=== PATIENT | male | born 1960 | race American Indian/Alaskan Native ===

== ENCOUNTER 2017-10-24 17:06 | Inpatient (IN) | payer OTHER ==
--- NOTE | 2017-10-24 17:39 | ED PDOC ---
Arrival/HPI - General Chief Complaint: Shortness Of Breath Time Seen by Provider: 10/24/17 17:22 Historian: Patient EM Caveat: Respiratory Distress - History of Present Illness Narrative History of Present Illness (Text): 10/24/17 17:36 Pt is a 56 year old AA male who presents with shortness of breath x 4 hrs ago while at work. 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 Also reports using heroin 5 hours ago, prior to the said SOB. Denies cp, n/v/d, back pain, fever or chills, or any other symptoms. Pt does not have a PMD. Denies sick contacts. 10/24/17 17:48 Time/Duration: 4-6 hours Symptom Onset: Sudden Symptom Course: Unchanged Quality: Pressure, Tightness Severity Level: Mild Activities at Onset: Light Context: Work Past Medical History - Provider Review Nursing Documentation Reviewed: Yes - Travel History Have you recently traveled outside [place] w/in the past 3 mons?: No - Past History Past History: No Previous - Infectious Disease Hx of Infectious Diseases: None - Tetanus Immunization Tetanus Immunization: Unknown - Cardiac Hx Cardiac Disorders: No - Pulmonary Hx Respiratory Disorders: Yes Hx Asthma: Yes - Neurological Hx Neurological Disorder: No - HEENT Hx HEENT Disorder: No - Renal Hx Renal Disorder: No - Endocrine/Metabolic Hx Endocrine Disorders: No - Hematological/Oncological Hx Blood Disorders: No - Integumentary Hx Dermatological Disorder: No - Musculoskeletal/Rheumatological Hx Musculoskeletal Disorders: No - Gastrointestinal Hx Gastrointestinal Disorders: No - Genitourinary/Gynecological Hx Genitourinary Disorders: No - Psychiatric Hx Psychophysiologic Disorder: No Hx Substance Use: Yes - Surgical History Other/Comment: hx of R finger surgery, 2nd digit - Anesthesia Hx Anesthesia: Yes Hx Anesthesia Reactions: No Family/Social History - Physician Review Nursing Documentation Reviewed: Yes Family/Social History: Unknown Family HX Smoking Status: Heavy Smoker > 10 Cigarettes Daily Hx Alcohol Use: No Hx Substance Use: Yes Substance used: heroin Hx Substance Use Treatment: Yes (Heroin) Allergies/Home Meds Allergies/Adverse Reactions: Allergies No Known Allergies Allergy (Verified 10/24/17 17:42) Review of Systems - Physician Review All systems were reviewed & negative as marked: Yes - Review of Systems Systems not reviewed;Unavailable: Respiratory Distress Constitutional: Normal Eyes: Normal ENT: Normal Respiratory: SOB, Wheezing Cardiovascular: Normal Gastrointestinal: Normal Genitourinary Male: Normal Musculoskeletal: Normal Skin: Normal Neurological: Normal Endocrine: Normal Hemo/Lymphatic: Normal Psychiatric: Normal Physical Exam Vital Signs Reviewed: Yes Vital Signs Temp Pulse Resp BP Pulse Ox 10/25/17 00:00 68 18 116/67 99 10/24/17 22:00 72 16 115/64 100 10/24/17 20:30 78 18 112/66 100 10/24/17 19:20 10 L 10/24/17 18:46 60 18 120/68 100 10/24/17 17:15 98.7 F 87 19 110/58 L 100 Temperature: Afebrile Blood Pressure: Normal Pulse: Regular Respiratory Rate: Normal Appearance: Positive for: Non-Toxic, Uncomfortable Pain Distress: Mild Mental Status: Positive for: Alert and Oriented X 3 - Systems Exam Head: Present: Atraumatic, Normocephalic Pupils: Present: Pinpoint Extroacular Muscles: Present: EOMI Conjunctiva: Present: Normal Mouth: Present: Moist Mucous Membranes Neck: Present: Normal Range of Motion Respiratory/Chest: Present: Respiratory Distress, Wheezes. No: Accessory Muscle Use Cardiovascular: Present: Regular Rate and Rhythm, Normal S1, S2. No: Murmurs Abdomen: Present: Normal Bowel Sounds. No: Tenderness, Distention, Peritoneal Signs Back: Present: Normal Inspection Upper Extremity: Present: Normal Inspection. No: Cyanosis, Edema Lower Extremity: Present: Normal Inspection. No: Edema Neurological: Present: GCS=15, CN II-XII Intact, Speech Normal Skin: Present: Warm, Dry, Normal Color. No: Rashes Psychiatric: Present: Alert, Oriented x 3, Normal Insight, Normal Concentration Medical Decision Making ED Course and Treatment: 10/24/17 17:39 Pt is a 56 year old AA male who presents with shortness of breath x 4 hrs ago while at work. On exam, bilateral lung field wheezing, no signs of respiratory distress, Plan ecg, cxr, duneb x3 assess and dispo Progress Note Pt received Duoneb q15 mins ECG NSR CXR reveals evidence of COPD Pt reluctant to give Urine sample however did after drinking water Prednisone 40mg and Azithromycin 500 mg given STAT Pt was able to walk to the restroom to give urine sample, when he returned to his bed, he was satting at 93% and refused to stand up and walk; tripoding at bedside; O2 given via NC at 2L and IV fluids; resident called to admit to Telemetry as per Dr. Martinez. Anticipated Dispo home: Rx of 5 days of prednisone 40 mg daily and instructed pt on regular use of a respirator while working, smoking cessation and avoidance of heroin use; informed pt of risks associated with heroin use 10/24/17 20:13 10/24/17 21:19 - Lab Interpretations Lab Results: 10/24/17 18:10 10/24/17 18:10 Lab Results 10/24/17 20:35: Urine Color Light yellow, Urine Appearance Clear, Urine pH 6.0, Ur Specific [place] 1.020, Urine Protein Negative, Urine Glucose (UA) Negative, Urine Ketones Negative, Urine Blood Trace-intact H, Urine Nitrate Negative, Urine Bilirubin Negative, Urine Urobilinogen 0.2, Ur Leukocyte Esterase Negative , Urine RBC 0 - 2, Urine WBC 0 - 2, Ur Epithelial Cells None, Urine Bacteria Small, Urine Other Usperm 10/24/17 20:35: Urine Opiates Screen Positive H, Urine Methadone Screen Negative , Ur Barbiturates Screen Negative, Ur Phencyclidine Scrn Negative, Ur Amphetamines Screen Negative, U Benzodiazepines Scrn Negative, U Oth Cocaine Metabols Negative, U Cannabinoids Screen Negative 10/24/17 18:10: Sodium 143, Potassium 4.7, Chloride 104, Carbon Dioxide 30, Anion Gap 14, BUN 14, Creatinine 0.7 L, Est GFR ( Amer) > 60, Est GFR ( Non-Af Amer) > 60, Random Glucose 109, Calcium 9.7, Total Bilirubin 0.2, AST 27 , ALT 37, Alkaline Phosphatase 67, Total Protein 7.5, Albumin 4.4, Globulin 3.2 , Albumin/Globulin Ratio 1.4 10/24/17 18:10: WBC 4.7, RBC 4.86, Hgb 13.6 L, Hct 40.8 L, MCV 84.0, MCH 28.0, MCHC 33.3, RDW 13.1, Plt Count 216, MPV 9.9 I have reviewed the lab results: Yes (Pos for Opiates) - RAD Interpretation Narrative RAD Interpretations (Text): 10/25/17 11:54 No infiltrates appreciated; COPD indications but needs clinical correlates Radiology Orders: 10/24/17 17:43 CXR [CHEST TWO VIEWS (PA/LAT)] [RAD] Stat Instrument Sterilizer: ED Physician - EKG Interpretation Interpreted by ED Physician: Yes (NSR with arrhythmia) - Medication Orders Current Medication Orders: Albuterol/Ipratropium (Duoneb 3 Mg/0.5 Mg (3 Ml) Ud) 3 ml IH [id number] TOD Last Admin: 10/25/17 07:36 Dose: 3 ml Albuterol/Ipratropium (Duoneb 3 Mg/0.5 Mg (3 Ml) Ud) 3 ml IH Q2H PRN PRN Reason: Shortness of Breath Clotrimazole (Lotrimin 1%) 0 gm TOP BID TOD Azithromycin (Zithromax 500mg In Ns) 500 mg in 250 mls @ 167 mls/hr IVPB DAILY TOD PRN Reason: Protocol Last Admin: 10/25/17 10:17 Dose: 167 mls/hr eMAR Start Stop Document 10/25/17 10:17 V (Rec: 10/25/17 10:17 [id number]) Intravenous Solution Start Date 10/25/17 Start Time 10:30 End Date 10/25/17 End time 11:45 Total Infusion Time 75 Lactic Acid (Lac-Hydrin 12% Lotion (225 G)) 0 gm EXT BID TOD Lorazepam (Ativan) 1 mg IVP Q1H PRN; Protocol PRN Reason: Anxiety Methadone HCl (Methadone) 10 mg PO BID [facility] Nicotine (Nicoderm Cq) 1 patch TD DAILY [facility] Last Admin: 10/25/17 10:16 Dose: 1 patch MAR Transdermal Patch Site Document 10/25/17 10:16 V (Rec: 10/25/17 10:17 [id number]) Transdermal Patch Site Transdermal Patch Site Right Outer Upper Arm Prednisone (Prednisone Tab) 20 mg PO BID [facility] Last Admin: 10/25/17 10:16 Dose: 20 mg Discontinued Medications Albuterol Sulfate (Albuterol 0.083% Inhal Joanna (2.5 Mg/3 Ml) Ud) 2.5 mg INH STAT STA Stop: 10/24/17 21:57 Last Admin: 10/24/17 22:09 Dose: 2.5 mg Albuterol/Ipratropium (Duoneb 3 Mg/0.5 Mg (3 Ml) Ud) 3 ml IH Q15M TOD Stop: 10/24/17 18:16 Last Admin: 10/24/17 18:30 Dose: 3 ml Albuterol/Ipratropium (Duoneb 3 Mg/0.5 Mg (3 Ml) Ud) 3 ml IH Q2H PRN PRN Reason: Shortness of Breath Stop: 10/25/17 02:46 Albuterol/Ipratropium (Duoneb 3 Mg/0.5 Mg (3 Ml) Ud) 3 ml IH Q15M TOD Stop: 10/25/17 07:39 Last Admin: 10/25/17 07:36 Dose: 3 ml Azithromycin (Zithromax) 500 mg PO STAT STA PRN Reason: Protocol Stop: 10/24/17 20:13 Last Admin: 10/24/17 20:31 Dose: 500 mg Sodium Chloride (Sodium Chloride 0.9%) 1,000 mls @ 999 mls/hr IV .Q1H1M STA Stop: 10/24/17 22:19 Last Admin: 10/24/17 21:54 Dose: 999 mls/hr eMAR Start Stop Document 10/24/17 21:54 JOL (Rec: 10/24/17 21:54 JOL [facility]-[id number]) Intravenous Solution Start Date 10/24/17 Start Time 21:54 End Date 10/24/17 End time 22:54 Total Infusion Time 60 Lorazepam (Ativan) 0.5 mg IVP ONCE ONE PRN Reason: Protocol Stop: 10/25/17 00:36 Last Admin: 10/25/17 00:50 Dose: 0.5 mg IVP Administration Document 10/25/17 00:50 MS (Rec: 10/25/17 00:50 MS [id number]) Charges for Administration # of IVP Administrations 1 Behavioural Document 10/25/17 00:50 MS (Rec: 10/25/17 00:50 MS [id number]) Maintenance Maintenance Dose No Nonmedicinal Nonmedicinal Interventions Redirect Therapeutic Communication Give food/fluids See nurse's notes Behavior Behavior for Medication: Anxiety Behavior Comment heroin abuse/withdrawal Re-Assess: Reassess Psych Meds Document 10/25/17 01:20 MS (Rec: 10/25/17 01:48 MS [id number]) Reassess Psych Med Effective Lorazepam (Ativan) 0.5 mg IVP STAT STA PRN Reason: Protocol Stop: 10/25/17 07:17 Last Admin: 10/25/17 07:36 Dose: 0.5 mg IVP Administration Document 10/25/17 07:36 MS (Rec: 10/25/17 07:37 MS [id number]) Charges for Administration # of IVP Administrations 1 Behavioural Document 10/25/17 07:36 MS (Rec: 10/25/17 07:37 MS [id number]) Maintenance Maintenance Dose No Nonmedicinal Nonmedicinal Interventions Redirect Therapeutic Communication Activity Give food/fluids Behavior Behavior for Medication: Anxiety Behavior Comment withdrawal Prednisone (Prednisone Tab) 40 mg PO STAT STA Stop: 10/24/17 20:12 Last Admin: 10/24/17 20:31 Dose: 40 mg Disposition/Present on Arrival - Present on Arrival Any Indicators Present on Arrival: Yes History of DVT/PE: No History of Uncontrolled Diabetes: No Urinary Catheter: No History of Decub. Ulcer: No History Surgical Site Infection Following: None - Disposition Have Diagnosis and Disposition been Completed?: Yes Diagnosis: COPD exacerbation Disposition: HOSPITALIZED Disposition Time: 22:21 Patient Plan: Admission Patient Problems: Current Active Problems Problem Status Onset COPD exacerbation Acute Condition: STABLE
[2017-10-24] MEDS: Albuterol-Ipratrop 3 mg / 0.5 (3 ml) UD IH SCH ×3 (18:00→18:30)
[2017-10-24 18:53] LABS: HEMOGLOBIN 13.6 g/dL (14.0-18.0); MEAN CORPUSCULAR HGB CONC 33.3 g/dl (31.0-37.0); MEAN PLATELET VOLUME 9.9 fl (7.0-11.0); RBC 4.86 10^6/uL (3.5-6.1); RED CELL DISTRIBUTION WIDTH 13.1 % (11.5-14.5); WHITE BLOOD COUNT 4.7 10^3/ul (4.5-11.0)
[2017-10-24 18:59] LABS: ALB/GLOB RATIO 1.4 (1.1-1.8); ALBUMIN 4.4 g/dL (3.0-4.8); ALT/SGPT 37 U/L (7-56); AST/SGOT 27 U/L (17-59); BLOOD UREA NITROGEN 14 mg/dL (7-21); CALCIUM 9.7 mg/dL (8.4-10.5); GFR AFRICAN-AMERICAN > 60; GFR NON-AFRICAN AMERICAN > 60
[2017-10-24 20:55] LABS: URINE BILIRUBIN NEGATIVE (NEGATIVE); URINE BLOOD TRACE-INTACT (NEGATIVE); URINE GLUCOSE (UA) NEGATIVE (NEGATIVE); URINE LEUKOCYTE ESTERASE NEGATIVE Leu/uL (NEGATIVE); URINE NITRATE NEGATIVE (NEGATIVE); URINE PROTEIN NEGATIVE mg/dL (<30 mg/dL); URINE UROBILINOGEN 0.2 E.U./dL (<1 E.U./dL)
[2017-10-24 20:56] LABS: URINE APPEARANCE CLEAR (CLEAR); URINE COLOR LIGHT YELLOW (YELLOW)
[2017-10-24 21:07] LABS: BARBITURATES, UR NEGATIVE (NEGATIVE); BENZODIAZEPINES, UR NEGATIVE (NEGATIVE); OPIATES, UR POSITIVE (NEGATIVE); PHENCYCLIDINE, UR NEGATIVE (NEGATIVE)
[2017-10-24 21:14] LABS: URINE RBC 0 - 2 /hpf (0-2); URINE WBC 0 - 2 /hpf (0-6)
[2017-10-24 21:15] LABS: URINE BACTERIA SMALL (NEG)
[2017-10-24] MEDS ORDERED: Sodium Chloride 0.9% 1,000 ML IV STA (21:19)
[2017-10-24] MEDS ORDERED: Albuterol 0.083% Inhal Sol (2.5 mg/3 mL) UD INH STA (21:56)
--- NOTE | 2017-10-24 22:34 | CP.PCM.HP ---
<JaharishDaly - Last Filed: 10/24/17 22:42> History of Present Illness - History of Present Illness History of Present Illness: Patient is a 56 year old male with a PMHx of Asthma who presents complaining of worsening SOB that started about 10 AM this morning. Patient states he was working at a [employer] site when his symptoms began. He tried his albuterol inhaler to relieve his symptoms with minimal relief. Patient does admit to sniffing heroin today. He also admits to sick contacts with the flu. Patient also complains of intermittent dyspnea on exertion and needing to use his albuterol inhaler on a daily basis. Patient denies any fevers, chills, headache , chest pain, palpitations, n/v/d, constipation, abdominal pain, or any urinary symptoms. He does admit to some mild chest tightness. ROS: As stated above PMHx: Asthma PSHx: Right 2nd finger surgery Allergies: NKDA SocialHx: Current Smoker: 2-3 Black & Milds Daily. Smoker for abou 28 years. Admits to mild alcohol use. Admits to Heroin Use (Sniff) Hos: Denies FamHx: Denies Meds: Albuterol IH Present on Admission - Present on Admission Any Indicators Present on Admission: No Review of Systems - Review of Systems Review of Systems: As per HPI Past Patient History - Infectious Disease Hx of Infectious Diseases: None - Tetanus Immunizations Tetanus Immunization: Unknown - Past Social History Smoking Status: Heavy Smoker > 10 Cigarettes Daily - CARDIAC Hx Cardiac Disorders: No - PULMONARY Hx Respiratory Disorders: Yes Hx Asthma: Yes - NEUROLOGICAL Hx Neurological Disorder: No - HEENT Hx HEENT Problems: No - RENAL Hx Chronic Kidney Disease: No - ENDOCRINE/METABOLIC Hx Endocrine Disorders: No - HEMATOLOGICAL/ONCOLOGICAL Hx Blood Disorders: No - INTEGUMENTARY Hx Dermatological Problems: No - MUSCULOSKELETAL/RHEUMATOLOGICAL Hx Musculoskeletal Disorders: No - GASTROINTESTINAL Hx Gastrointestinal Disorders: No - GENITOURINARY/GYNECOLOGICAL Hx Genitourinary Disorders: No - PSYCHIATRIC Hx Psychophysiologic Disorder: No Hx Substance Use: Yes - SURGICAL HISTORY Other/Comment: hx of R finger surgery, 2nd digit - ANESTHESIA Hx Anesthesia: Yes Hx Anesthesia Reactions: No Meds Home Medications: Home Medication List Medication Instructions Recorded Confirmed Type Albuterol HFA [Ventolin HFA 90 2 puff IH [id number] 30 Days #1 puff 10/24/17 Rx mcg/actuation (8 g)] Azithromycin 250 mg PO DAILY 4 Days #4 tablet 10/24/17 Rx predniSONE [Prednisone] 40 mg PO DAILY 5 Days #10 tab 10/24/17 Rx Allergies/Adverse Reactions: Allergies Allergy/AdvReac Type Severity Reaction Status Date / Time No Known Allergies Allergy Verified 10/24/17 17:42 Physical Exam - Constitutional Appears: Non-toxic, No Acute Distress, Cachectic - Head Exam Head Exam: ATRAUMATIC, NORMAL INSPECTION, NORMOCEPHALIC - Eye Exam Eye Exam: EOMI, PERRL Pupil Exam: Miosis - ENT Exam ENT Exam: Normal Oropharynx - Neck Exam Neck exam: Negative for: Lymphadenopathy, Tenderness, Thyromegaly - Respiratory Exam Respiratory Exam: Decreased Breath Sounds, Wheezes (mild, Right Upper Lung) - Cardiovascular Exam Cardiovascular Exam: +S1, +S2. absent: JVD - GI/Abdominal Exam GI & Abdominal Exam: Normal Bowel Sounds, Soft. absent: Tenderness - Extremities Exam Extremities exam: Positive for: normal capillary refill. Negative for: pedal edema Additional comments: Lower ext. Dry and Scaly B/L. Finger Clubbing B/L - Neurological Exam Neurological exam: Alert, Oriented x3 - Psychiatric Exam Psychiatric exam: Normal Affect, Normal Mood - Skin Skin Exam: Dry, Intact, Warm Results - Vital Signs Recent Vital Signs: Last Vital Signs Temp 98.7 F 10/24/17 17:15 Pulse 78 10/24/17 20:30 Resp 18 10/24/17 20:30 BP 112/66 10/24/17 20:30 Pulse Ox 100 10/24/17 20:30 - Labs Result Diagrams: 10/24/17 18:10 10/24/17 18:10 Labs: Laboratory Results - last 24 hr 10/24/17 10/24/17 10/24/17 18:10 18:10 20:35 WBC 4.7 RBC 4.86 Hgb 13.6 L Hct 40.8 L MCV 84.0 MCH 28.0 MCHC 33.3 RDW 13.1 Plt Count 216 MPV 9.9 Sodium 143 Potassium 4.7 Chloride 104 Carbon Dioxide 30 Anion Gap 14 BUN 14 Creatinine 0.7 L Est GFR ( Amer) > 60 Est GFR (Non-Af Amer) > 60 Random Glucose 109 Calcium 9.7 Total Bilirubin 0.2 AST 27 ALT 37 Alkaline Phosphatase 67 Total Protein 7.5 Albumin 4.4 Globulin 3.2 Albumin/Globulin Ratio 1.4 Urine Color Urine Appearance Urine pH Ur Specific [place] Urine Protein Urine Glucose (UA) Urine Ketones Urine Blood Urine Nitrate Urine Bilirubin Urine Urobilinogen Ur Leukocyte Esterase Urine RBC Urine WBC Ur Epithelial Cells Urine Bacteria Urine Other Urine Opiates Screen Positive H Urine Methadone Screen Negative Ur Barbiturates Screen Negative Ur Phencyclidine Scrn Negative Ur Amphetamines Screen Negative U Benzodiazepines Scrn Negative U Oth Cocaine Metabols Negative U Cannabinoids Screen Negative 10/24/17 20:35 WBC RBC Hgb Hct MCV MCH MCHC RDW Plt Count MPV Sodium Potassium Chloride Carbon Dioxide Anion Gap BUN Creatinine Est GFR ( Amer) Est GFR (Non-Af Amer) Random Glucose Calcium Total Bilirubin AST ALT Alkaline Phosphatase Total Protein Albumin Globulin Albumin/Globulin Ratio Urine Color Light yellow Urine Appearance Clear Urine pH 6.0 Ur Specific [place] 1.020 Urine Protein Negative Urine Glucose (UA) Negative Urine Ketones Negative Urine Blood Trace-intact H Urine Nitrate Negative Urine Bilirubin Negative Urine Urobilinogen 0.2 Ur Leukocyte Esterase Negative Urine RBC 0 - 2 Urine WBC 0 - 2 Ur Epithelial Cells None Urine Bacteria Small Urine Other Usperm Urine Opiates Screen Urine Methadone Screen Ur Barbiturates Screen Ur Phencyclidine Scrn Ur Amphetamines Screen U Benzodiazepines Scrn U Oth Cocaine Metabols U Cannabinoids Screen Assessment & Plan - Assessment and Plan (Free Text) Assessment: 56 year old with PMHx of Asthma presents with SOB. Plan: SOB DDx: Obstructive Disease Exacerbation (Asthma vs COPD), Heroin Intoxication, Mixed presentation CXR (Adm): Lung Hypernflation with mild peribronchial thickening. PENDING Official Read. 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 Proph SCD's Patient discussed with Attending Daly Nicholas, PGY1 <Christina Martinez - Last Filed: 10/25/17 07:27> Results - Vital Signs Recent Vital Signs: Last Vital Signs Temp 98.2 F 10/25/17 05:27 Pulse 66 10/25/17 05:27 Resp 16 10/25/17 05:27 BP 112/82 10/25/17 05:27 Pulse Ox 96 10/25/17 05:27 - Labs Result Diagrams: 10/25/17 06:00 10/24/17 18:10 Labs: Laboratory Results - last 24 hr 10/25/17 06:00 WBC 4.6 RBC 4.85 Hgb 13.4 L Hct 40.3 L MCV 83.1 MCH 27.6 MCHC 33.3 RDW 12.8 Plt Count 222 MPV 9.8 Gran % 80.0 H Lymph % (Auto) 18.2 L [place] % (Auto) 1.8 Eos % (Auto) 0.0 L Baso % (Auto) 0.0 Gran # 3.64 Lymph # (Auto) 0.8 L [place] # (Auto) 0.1 Eos # (Auto) 0.0 Baso # (Auto) 0.00 Attending/Attestation - Attestation I have personally seen and examined this patient.: Yes I have fully participated in the care of the patient.: Yes I have reviewed all pertinent clinical information: Yes Notes (Text): 10/25/17 07:27 Patient was seen when he was in ER. Agree with history, physical examination, assessment and plan.
[2017-10-24] MEDS ORDERED: Albuterol-Ipratrop 3 mg / 0.5 (3 ml) UD IH PRN (22:39)
[2017-10-24] MEDS ORDERED: Albuterol-Ipratrop 3 mg / 0.5 (3 ml) UD IH SCH (22:45)
[2017-10-25 00:40] VITALS: BMI 21.2
[2017-10-25] MEDS ORDERED: Albuterol-Ipratrop 3 mg / 0.5 (3 ml) UD IH PRN (04:56)
[2017-10-25 06:51] LABS: GRAN # 3.64 (1.4-6.5); HEMOGLOBIN 13.4 g/dL (14.0-18.0); LYMPH # 0.8 (1.2-3.4); LYMPH % 18.2 % (22.0-35.0); MEAN CELL VOLUME 83.1 fl (80.0-105.0); MEAN CORPUSCULAR HEMOGLOBIN 27.6 pg (25.0-35.0); MEAN CORPUSCULAR HGB CONC 33.3 g/dl (31.0-37.0); MEAN PLATELET VOLUME 9.8 fl (7.0-11.0); MONO # 0.1 (0.1-0.6); MONO % 1.8 % (1.0-6.0); RBC 4.85 10^6/uL (3.5-6.1); RED CELL DISTRIBUTION WIDTH 12.8 % (11.5-14.5); WHITE BLOOD COUNT 4.6 10^3/ul (4.5-11.0)
[2017-10-25 07:27] LABS: ALB/GLOB RATIO 1.4 (1.1-1.8); ALBUMIN 4.1 g/dL (3.0-4.8); ALT/SGPT 25 U/L (7-56); AST/SGOT 23 U/L (17-59); BLOOD UREA NITROGEN 13 mg/dL (7-21); CALCIUM 9.5 mg/dL (8.4-10.5); GFR AFRICAN-AMERICAN > 60; GFR NON-AFRICAN AMERICAN > 60
[2017-10-25] MEDS: Albuterol-Ipratrop 3 mg / 0.5 (3 ml) UD IH SCH ×4 (07:36→20:06)
--- NOTE | 2017-10-25 08:06 | RAD ---
HISTORY: wheezing COMPARISON: No prior. TECHNIQUE: Chest PA and lateral FINDINGS: LUNGS: There is probable exuberant inspiratory volume though an element of COPD is difficult to completely exclude given prominent lucency at the anterior chest in a lateral view. Clinically correlate further. No acute infiltrate identified bilaterally. PLEURA: No significant pleural effusion identified. No pneumothorax apparent. CARDIOVASCULAR: Normal. OSSEOUS STRUCTURES: No significant abnormalities. VISUALIZED UPPER ABDOMEN: Normal. OTHER FINDINGS: None. IMPRESSION: No acute infiltrate or cardiovascular disease appreciable. Prominent inspiratory effort is favored over possible COPD but clinical correlation is advised.
--- NOTE | 2017-10-25 08:22 | CP.PCM.PN ---
<Charles Maharaj - Last Filed: 10/25/17 16:50> Subjective - Date & Time of Evaluation Date of Evaluation: 10/25/17 Time of Evaluation: 07:00 - Subjective Subjective: patient seen and examined at bedside in no acute distress asleep. Patient states he will become very agitated when he withdraws. states he is still experiencing shortness of breath however, that along with dizziness is one of his uusal symptoms of heroine withdrawals. staes his feet feel cold and wet due tonehere he works. 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 Denies chest pain, abdominal pain, nausea, vomiting, fevers, chills. states he does not have a pmd, normally gets his medications from hospital admission. last hospital admission was [facility] where he received his albuterol. states that he normally consumes four bags of heroin a day and has now run out of heroin. Objective - Vital Signs/Intake and Output Vital Signs (last 24 hours): Temp Pulse Resp BP Pulse Ox 98.2 F 66 16 112/82 96 10/25/17 05:27 10/25/17 05:27 10/25/17 05:27 10/25/17 05:27 10/25/17 05:27 Intake and Output: 10/25/17 10/25/17 06:59 18:59 Intake Total 340 Balance 340 - Medications Medications: Current Medications Albuterol/Ipratropium (Duoneb 3 Mg/0.5 Mg (3 Ml) Ud) 3 ml IH [id number] [facility] Last Admin: 10/25/17 07:36 Dose: 3 ml Albuterol/Ipratropium (Duoneb 3 Mg/0.5 Mg (3 Ml) Ud) 3 ml IH Q2H PRN PRN Reason: Shortness of Breath Azithromycin (Zithromax 500mg In Ns) 500 mg in 250 mls @ 167 mls/hr IVPB DAILY TOD PRN Reason: Protocol Lorazepam (Ativan) 1 mg IVP Q1H PRN; Protocol PRN Reason: Anxiety Nicotine (Nicoderm Cq) 1 patch TD DAILY [facility] Prednisone (Prednisone Tab) 20 mg PO BID [facility] - Labs Labs: 10/25/17 06:00 10/25/17 06:00 - Constitutional Appears: Non-toxic, No Acute Distress - Head Exam Head Exam: ATRAUMATIC, NORMAL INSPECTION, NORMOCEPHALIC - Eye Exam Eye Exam: EOMI, Normal appearance - ENT Exam ENT Exam: Mucous Membranes Moist, Normal Exam - Neck Exam Neck Exam: Normal Inspection - Respiratory Exam Respiratory Exam: Wheezes, NORMAL BREATHING PATTERN - Cardiovascular Exam Cardiovascular Exam: REGULAR RHYTHM, +S1, +S2 - GI/Abdominal Exam GI & Abdominal Exam: Soft, Normal Bowel Sounds - Extremities Exam Additional comments: bilateral lower extremity scaling snd sloughing of skin, malodorous - Back Exam Back Exam: NORMAL INSPECTION - Neurological Exam Neurological Exam: Alert, Awake, Oriented x3 - Psychiatric Exam Psychiatric exam: Normal Affect, Normal Mood - Skin Skin Exam: Dry, Intact, Warm Assessment and Plan - Assessment and Plan (Free Text) Assessment: 56 year old with past medical history of Asthma presents with SOB. Plan: Shortness of Breth Secondary to Obstructive Disease Exacerbation due to Heroin Intoxication v work environment (demolition sites) -CXR: no active disease -DuoNebs, Albuterol, Prednisone 40, and Azithromycin Given in ED -Continue with DuoNebs Q6H TOD, Q2H PRN -Flonase -Prednisone 20 BID -Azithromycin 500 Daily Heroin/Tobacco Abuse -Traveling Nurse on cessation -Ativan 1mg q1hr PRN -Methadone 10 mg BID Dry and keratotic lower extremities -Podiatry consulted Prophylaxis SCD's Patient discussed with Attending Dr. Jimi Maharaj PGY1 <Laura Krause - Last Filed: 10/25/17 18:21> Objective - Vital Signs/Intake and Output Vital Signs (last 24 hours): Temp Pulse Resp BP Pulse Ox 98.3 F 79 18 109/68 96 10/25/17 11:59 10/25/17 11:59 10/25/17 11:59 10/25/17 11:59 10/25/17 05:27 Intake and Output: 10/25/17 10/25/17 06:59 18:59 Intake Total 340 480 Balance 340 480 - Medications Medications: Current Medications Albuterol/Ipratropium (Duoneb 3 Mg/0.5 Mg (3 Ml) Ud) 3 ml IH [id number] Last Admin: 10/25/17 13:56 Dose: 3 ml Albuterol/Ipratropium (Duoneb 3 Mg/0.5 Mg (3 Ml) Ud) 3 ml IH Q2H PRN PRN Reason: Shortness of Breath Azithromycin (Zithromax) 500 mg PO DAILY TOD Clotrimazole (Lotrimin 1%) 0 gm TOP BID [facility] Last Admin: 10/25/17 12:42 Dose: 1 tcp Famotidine (Pepcid) 40 mg PO HS TOD Fluticasone Propionate (Flonase) 1 actuation NS DAILY [facility] Last Admin: 10/25/17 17:48 Dose: Not Given Lactic Acid (Lac-Hydrin 12% Lotion (225 G)) 0 gm EXT BID TOD Lorazepam (Ativan) 1 mg IVP Q1H PRN; Protocol PRN Reason: Anxiety Last Admin: 10/25/17 17:53 Dose: 1 mg Methadone HCl (Methadone) 10 mg PO BID [facility] Last Admin: 10/25/17 12:38 Dose: 10 mg Methylprednisolone (Solu-Medrol) 40 mg IVP Q12 [facility] Nicotine (Nicoderm Cq) 1 patch TD DAILY [facility] Last Admin: 10/25/17 10:16 Dose: 1 patch - Labs Labs: 10/25/17 06:00 10/25/17 06:00 Attending/Attestation - Attestation I have personally seen and examined this patient.: Yes I have fully participated in the care of the patient.: Yes I have reviewed all pertinent clinical information, including history, physical exam and plan: Yes Notes (Text): 10/25/17 18:18 attending note; Patient seen and examined with resident. Patient is a 56-year-old male with a past medical history of asthma/COPD, active smoker, active heroin abuse is admitted with COPD exacerbation. Continue oxygen, DuoNeb, inhaled steroids and IV Solu-Medrol. chest x-ray is negative for pneumonia. Heroin withdrawal; started on methadone. Complete drug abuse cessation is strongly advised. Active smoking; smoking cessation is strongly advised. started on NicODERM patch. upon discharge the patient will follow-up with PMD in [place].
[2017-10-25] MEDS ORDERED: Azithromycin 250 MG in Sodium Chloride 0.9% 250 ML IVPB SCH (10:00)
[2017-10-25] MEDS ORDERED: Azithromycin 500MG/NS 250ml 500 MG/250 ML BAG IVPB SCH (10:00)
--- NOTE | 2017-10-25 10:25 | CP.PCM.CON ---
History of Present Illness - History of Present Illness History of Present Illness: Podiatry Consult Note - Dr. Gonzalez 56 year old male PMHx asthma seen and evaluated at bedside for bilateral lower extremity scaling. Patient sleeping at time of visit, NAD. Patient complaining of dry, itchy skin to both legs and feet. No other pedal complaints. Admits to mild SOB. Denies N/V/F/D/C. Review of Systems - Review of Systems All systems: reviewed and no additional remarkable complaints except (as per HPI ) Past Patient History - Infectious Disease Hx of Infectious Diseases: None - Tetanus Immunizations Tetanus Immunization: Unknown - Past Social History Smoking Status: Heavy Smoker > 10 Cigarettes Daily - CARDIAC Hx Cardiac Disorders: No - PULMONARY Hx Respiratory Disorders: Yes Hx Asthma: Yes Hx Pneumonia: Yes (intubated in past) - NEUROLOGICAL Hx Neurological Disorder: No - HEENT Hx HEENT Problems: No - RENAL Hx Chronic Kidney Disease: No - ENDOCRINE/METABOLIC Hx Endocrine Disorders: No - HEMATOLOGICAL/ONCOLOGICAL Hx Blood Disorders: No - INTEGUMENTARY Hx Dermatological Problems: No - MUSCULOSKELETAL/RHEUMATOLOGICAL Hx Musculoskeletal Disorders: No Hx Falls: No - GASTROINTESTINAL Hx Gastrointestinal Disorders: No - GENITOURINARY/GYNECOLOGICAL Hx Genitourinary Disorders: No - PSYCHIATRIC Hx Psychophysiologic Disorder: No Hx Substance Use: Yes (heroin (4 bags per day)) - SURGICAL HISTORY Hx Surgeries: Yes Hx Orthopedic Surgery: Yes (hx of R finger surgery, 2nd digit) - ANESTHESIA Hx Anesthesia: Yes Hx Anesthesia Reactions: No Meds Home Medications: Home Medication List Medication Instructions Recorded Confirmed Type Albuterol HFA [Ventolin HFA 90 2 puff IH [id number] 30 Days #1 puff 10/24/17 Rx mcg/actuation (8 g)] Azithromycin 250 mg PO DAILY 4 Days #4 tablet 10/24/17 Rx predniSONE [Prednisone] 40 mg PO DAILY 5 Days #10 tab 10/24/17 Rx Allergies/Adverse Reactions: Allergies Allergy/AdvReac Type Severity Reaction Status Date / Time No Known Allergies Allergy Verified 10/24/17 17:42 - Medications Medications: Current Medications Albuterol/Ipratropium (Duoneb 3 Mg/0.5 Mg (3 Ml) Ud) 3 ml IH [id number] TOD Last Admin: 10/25/17 07:36 Dose: 3 ml Albuterol/Ipratropium (Duoneb 3 Mg/0.5 Mg (3 Ml) Ud) 3 ml IH Q2H PRN PRN Reason: Shortness of Breath Azithromycin (Zithromax 500mg In Ns) 500 mg in 250 mls @ 167 mls/hr IVPB DAILY TOD PRN Reason: Protocol Lorazepam (Ativan) 1 mg IVP Q1H PRN; Protocol PRN Reason: Anxiety Nicotine (Nicoderm Cq) 1 patch TD DAILY [facility] Prednisone (Prednisone Tab) 20 mg PO BID TOD Physical Exam - Constitutional Appears: Well, Non-toxic, No Acute Distress - Extremities Exam Additional comments: VASC: DP and PT pulses palpable b/l. CFT WNL b/l. Temperature gradient warm to warm b/l. No edema noted. NEURO: Gross sensation intact bilaterally. DERM: Severe diffuse scaling noted circumfirentially to leg with hyperkeratotic plaques surrounding medial ankle b/l. Nails thickened, elongated, dystrophic with the presence of subungual debris ORTHO: No pain on palpation bilateral LE. - Neurological Exam Neurological exam: Alert, Oriented x3 - Psychiatric Exam Psychiatric exam: Normal Affect, Normal Mood Results - Vital Signs Recent Vital Signs: Last Vital Signs Temp 98.2 F 10/25/17 05:27 Pulse 66 10/25/17 05:27 Resp 16 10/25/17 05:27 BP 112/82 10/25/17 05:27 Pulse Ox 96 10/25/17 05:27 - Labs Result Diagrams: 10/25/17 06:00 10/25/17 06:00 Labs: Laboratory Results - last 24 hr 10/25/17 10/25/17 10/25/17 06:00 06:00 06:00 WBC 4.6 RBC 4.85 Hgb 13.4 L Hct 40.3 L MCV 83.1 MCH 27.6 MCHC 33.3 RDW 12.8 Plt Count 222 MPV 9.8 Gran % 80.0 H Lymph % (Auto) 18.2 L [place] % (Auto) 1.8 Eos % (Auto) 0.0 L Baso % (Auto) 0.0 Gran # 3.64 Lymph # (Auto) 0.8 L [place] # (Auto) 0.1 Eos # (Auto) 0.0 Baso # (Auto) 0.00 Sodium 142 Potassium 4.7 Chloride 105 Carbon Dioxide 28 Anion Gap 14 BUN 13 Creatinine 0.7 L Est GFR ( Amer) > 60 Est GFR (Non-Af Amer) > 60 Random Glucose 116 H Calcium 9.5 Total Bilirubin 0.4 AST 23 ALT 25 Alkaline Phosphatase 61 Troponin I < 0.01 Total Protein 7.0 Albumin 4.1 Globulin 2.9 Albumin/Globulin Ratio 1.4 Assessment & Plan - Assessment and Plan (Free Text) Assessment: 56 year old male PMHx asthma with 1) tinea pedis 2) hyperkeratotic eczema Plan: Patient seen and evaluated with attending, Dr. Gonzalez Afebrile, WBC 4.6 Bilateral LE soak with betadine/water solution Clorimazole and Lac-Hydrin ordered for BID application Stable per podiatry standpoint Will continue to follow while in house
[2017-10-25] MEDS: Clotrimazole 1% Cream(30 gm) TOP SCH ×2 (12:42→20:05)
[2017-10-25] MEDS: Fluticasone Nasal 50 mcg/Spray NS SCH ×2 (16:30→17:48)
[2017-10-25] MEDS: Ammonium Lactate 12% Lotion (225 g) EXT SCH ×2 (20:05→20:06)
[2017-10-25] MEDS: MethylPREDNISolone 40 mg Vial IVP SCH (22:35)
[2017-10-26] MEDS: Albuterol-Ipratrop 3 mg / 0.5 (3 ml) UD IH SCH ×4 (01:25→20:03)
--- NOTE | 2017-10-26 02:50 | CARD ---
APPROVED REPORT EKG Measurement Heart [id number] <Conclusion> Normal sinus rhythm with sinus arrhythmia Normal ECG
[2017-10-26 06:21] LABS: GRAN # 8.08 (1.4-6.5); GRAN % 87.7 % (50.0-68.0); LYMPH % 10.3 % (22.0-35.0); MEAN CELL VOLUME 81.4 fl (80.0-105.0); MEAN CORPUSCULAR HEMOGLOBIN 27.9 pg (25.0-35.0); MEAN CORPUSCULAR HGB CONC 34.3 g/dl (31.0-37.0); MEAN PLATELET VOLUME 9.5 fl (7.0-11.0); MONO # 0.2 (0.1-0.6); RBC 5.01 10^6/uL (3.5-6.1); RED CELL DISTRIBUTION WIDTH 12.8 % (11.5-14.5); WHITE BLOOD COUNT 9.2 10^3/ul (4.5-11.0)
[2017-10-26] MEDS: Pantoprazole 40 mg EC Tab PO SCH (06:41)
[2017-10-26 06:44] LABS: ALB/GLOB RATIO 1.3 (1.1-1.8); ALBUMIN 4.1 g/dL (3.0-4.8); ALT/SGPT 18 U/L (7-56); AST/SGOT 18 U/L (17-59); BLOOD UREA NITROGEN 12 mg/dL (7-21); CALCIUM 9.7 mg/dL (8.4-10.5); GFR AFRICAN-AMERICAN > 60; GFR NON-AFRICAN AMERICAN > 60
[2017-10-26] MEDS: Enoxaparin 30 mg Syringe SC SCH ×2 (10:18→10:39)
[2017-10-26] MEDS: MethylPREDNISolone 40 mg Vial IVP SCH ×2 (10:18→22:04)
[2017-10-26] MEDS: Fluticasone Nasal 50 mcg/Spray NS SCH ×2 (10:18→10:44)
[2017-10-26] MEDS: Ammonium Lactate 12% Lotion (225 g) EXT SCH ×2 (10:18→18:22)
[2017-10-26] MEDS: Clotrimazole 1% Cream(30 gm) TOP SCH ×2 (10:18→18:22)
--- NOTE | 2017-10-26 11:26 | CP.PCM.PCO ---
Additional Comments - Additional Comments Additional Comments: Patient refused nail care despite maximal encouragement. Podiatry to sign off at this time, please re-consult if new issues arise.
[2017-10-26] MEDS: Dextrose 5%/0.9% NS 1,000 ML IV SCH (16:28)
[2017-10-27] MEDS: Albuterol-Ipratrop 3 mg / 0.5 (3 ml) UD IH SCH ×4 (01:25→20:23)
[2017-10-27] MEDS: Dextrose 5%/0.9% NS 1,000 ML IV SCH ×2 (02:00→15:23)
--- NOTE | 2017-10-27 03:53 | CP.PCM.PN ---
<Charles Maharaj - Last Filed: 10/27/17 03:54> Subjective - Date & Time of Evaluation Date of Evaluation: 10/27/17 Time of Evaluation: 08:00 - Subjective Subjective: Patient seen and examined at bedside. As per nursing he slept overnight. Patient refused podiatry visits. Patient is currently stating he is withdrawing from heroin; feeling weak, nauseous, loss of appetite, vomiting. Denies shortness of breath. Objective - Vital Signs/Intake and Output Vital Signs (last 24 hours): Temp Pulse Resp BP Pulse Ox 98.7 F 68 18 138/86 97 10/26/17 12:00 10/26/17 12:00 10/26/17 12:00 10/26/17 12:00 10/26/17 06:00 Intake and Output: 10/26/17 10/27/17 18:59 06:59 Intake Total 80 Balance 80 - Medications Medications: Current Medications Albuterol/Ipratropium (Duoneb 3 Mg/0.5 Mg (3 Ml) Ud) 3 ml IH [id number] [facility] Last Admin: 10/27/17 01:25 Dose: Not Given Albuterol/Ipratropium (Duoneb 3 Mg/0.5 Mg (3 Ml) Ud) 3 ml IH Q2H PRN PRN Reason: Shortness of Breath Azithromycin (Zithromax) 500 mg PO DAILY [facility] Last Admin: 10/26/17 12:34 Dose: Not Given Clotrimazole (Lotrimin 1%) 0 gm TOP BID [facility] Last Admin: 10/26/17 18:22 Dose: Not Given Enoxaparin Sodium (Lovenox) 30 mg SC DAILY [facility] PRN Reason: Protocol Last Admin: 10/26/17 10:39 Dose: Not Given Famotidine (Pepcid) 40 mg PO HS [facility] Last Admin: 10/26/17 22:04 Dose: 40 mg Fluticasone Propionate (Flonase) 1 actuation NS DAILY [facility] Last Admin: 10/26/17 10:44 Dose: Not Given Dextrose/Sodium Chloride (Dextrose 5%/0.9% Ns 1000 Ml) 1,000 mls @ 100 mls/hr IV .Q10H [facility] Last Admin: 10/26/17 16:28 Dose: 100 mls/hr Lactic Acid (Lac-Hydrin 12% Lotion (225 G)) 0 gm EXT BID [facility] Last Admin: 10/26/17 18:22 Dose: Not Given Lorazepam (Ativan) 1 mg IVP Q1H PRN; Protocol PRN Reason: Anxiety Last Admin: 10/26/17 22:02 Dose: 1 mg Methadone HCl (Methadone) 10 mg PO TID [facility] Last Admin: 10/26/17 22:05 Dose: 10 mg Methylprednisolone (Solu-Medrol) 40 mg IVP Q12 [facility] Last Admin: 10/26/17 22:04 Dose: 40 mg Nicotine (Nicoderm Cq) 1 patch TD DAILY [facility] Last Admin: 10/26/17 10:17 Dose: 1 patch Ondansetron HCl (Zofran Inj) 4 mg IVP Q4H PRN PRN Reason: Nausea/Vomiting Last Admin: 10/26/17 11:37 Dose: 4 mg Pantoprazole Sodium (Protonix Ec Tab) 40 mg PO 0600 [facility] Last Admin: 10/26/17 06:41 Dose: 40 mg - Labs Labs: 10/26/17 05:30 10/26/17 05:30 - Constitutional Appears: Non-toxic, No Acute Distress - Head Exam Head Exam: ATRAUMATIC, NORMAL INSPECTION, NORMOCEPHALIC - Eye Exam Eye Exam: EOMI, Normal appearance - ENT Exam ENT Exam: Mucous Membranes Moist, Normal Exam - Neck Exam Neck Exam: Normal Inspection - Respiratory Exam Respiratory Exam: Clear to Ausculation Bilateral, NORMAL BREATHING PATTERN. absent: Wheezes - Cardiovascular Exam Cardiovascular Exam: REGULAR RHYTHM, +S1, +S2 - GI/Abdominal Exam GI & Abdominal Exam: Soft, Normal Bowel Sounds. absent: Distended, Firm, Guarding - Neurological Exam Neurological Exam: Alert, Awake, CN II-XII Intact - Psychiatric Exam Psychiatric exam: Normal Affect, Normal Mood - Skin Skin Exam: Intact, Normal Color, Warm Assessment and Plan - Assessment and Plan (Free Text) Assessment: 56 year old with past medical history of Asthma presents with SOB. Plan: Shortness of Breath Secondary to Obstructive Disease Exacerbation due to Heroin Intoxication v work environment (demolition sites) -CXR: no active disease -DuoNebs, Albuterol, Prednisone 40, and Azithromycin Given in ED -Continue with DuoNebs Q6H TOD, Q2H PRN -Flonase -IV methylprednisolone, will dischage with medrol dose pack -Continue azithromycin 500 Daily Heroin/Tobacco Abuse -Cobol Programmer on cessation -Ativan 1mg q1hr PRN -Methadone 10 mg TID -Zofran PRN for nausea -IVF D51/2NS started Dry and keratotic lower extremities -Podiatry consulted however has signed off since patient is refusing podiatry visits. Prophylaxis SCD's+Lovenox/Pepcid Patient discussed with Attending Dr. Jimi Maharaj PGY1 <Laura Krause - Last Filed: 10/27/17 07:50> Objective - Vital Signs/Intake and Output Vital Signs (last 24 hours): Temp Pulse Resp BP Pulse Ox 98.5 F 69 22 114/78 99 10/27/17 06:00 10/27/17 06:00 10/27/17 06:00 10/27/17 06:00 10/27/17 06:00 Intake and Output: 10/27/17 10/27/17 06:59 18:59 Intake Total 1920 Output Total 2000 Balance -80 - Medications Medications: Current Medications Albuterol/Ipratropium (Duoneb 3 Mg/0.5 Mg (3 Ml) Ud) 3 ml IH [id number] [facility] Last Admin: 10/27/17 01:25 Dose: Not Given Albuterol/Ipratropium (Duoneb 3 Mg/0.5 Mg (3 Ml) Ud) 3 ml IH Q2H PRN PRN Reason: Shortness of Breath Azithromycin (Zithromax) 500 mg PO DAILY [facility] Last Admin: 10/26/17 12:34 Dose: Not Given Clotrimazole (Lotrimin 1%) 0 gm TOP BID [facility] Last Admin: 10/26/17 18:22 Dose: Not Given Enoxaparin Sodium (Lovenox) 30 mg SC DAILY TOD PRN Reason: Protocol Last Admin: 10/26/17 10:39 Dose: Not Given Famotidine (Pepcid) 40 mg PO HS [facility] Last Admin: 10/26/17 22:04 Dose: 40 mg Fluticasone Propionate (Flonase) 1 actuation NS DAILY [facility] Last Admin: 10/26/17 10:44 Dose: Not Given Dextrose/Sodium Chloride (Dextrose 5%/0.9% Ns 1000 Ml) 1,000 mls @ 100 mls/hr IV .Q10H [facility] Last Admin: 10/27/17 02:00 Dose: Not Given Lactic Acid (Lac-Hydrin 12% Lotion (225 G)) 0 gm EXT BID [facility] Last Admin: 10/26/17 18:22 Dose: Not Given Lorazepam (Ativan) 1 mg IVP Q1H PRN; Protocol PRN Reason: Anxiety Last Admin: 10/27/17 05:29 Dose: 1 mg Methadone HCl (Methadone) 10 mg PO TID [facility] Last Admin: 10/26/17 22:05 Dose: 10 mg Methylprednisolone (Solu-Medrol) 40 mg IVP Q12 [facility] Last Admin: 10/26/17 22:04 Dose: 40 mg Nicotine (Nicoderm Cq) 1 patch TD DAILY [facility] Last Admin: 10/26/17 10:17 Dose: 1 patch Ondansetron HCl (Zofran Inj) 4 mg IVP Q4H PRN PRN Reason: Nausea/Vomiting Last Admin: 10/26/17 11:37 Dose: 4 mg Pantoprazole Sodium (Protonix Ec Tab) 40 mg PO 0600 [facility] Last Admin: 10/27/17 05:29 Dose: 40 mg - Labs Labs: 10/26/17 05:30 10/26/17 05:30 Attending/Attestation - Attestation I have personally seen and examined this patient.: Yes I have fully participated in the care of the patient.: Yes I have reviewed all pertinent clinical information, including history, physical exam and plan: Yes Notes (Text): 10/27/17 07:42 attending note; Patient seen and examined with resident. Patient is a 56-year-old male with a past medical history of asthma/COPD, active smoker, active heroin abuse is admitted with COPD exacerbation. on oxygen, DuoNeb, inhaled steroids and IV Solu-Medrol. Stable respiratory status. chest x-ray is negative for pneumonia. Heroin withdrawal; started on methadone. Complete drug abuse cessation is strongly advised. Patient has nausea and vomiting. Not tolerating diet. Monitor closely. Active smoking; smoking cessation is strongly advised. started on NicODERM patch. upon discharge the patient will follow-up with PMD in [place]. 10/27/17 07:50
[2017-10-27] MEDS: Pantoprazole 40 mg EC Tab PO SCH (05:29)
--- NOTE | 2017-10-27 10:33 | CP.PCM.DIS ---
<Charles Maharaj - Last Filed: 10/28/17 15:48> Provider - Provider Date of Admission: 10/24/17 22:28 Attending physician: Laura Krause MD Consults: Podiatry: Dr. Gonzalez Time Spent in preparation of Discharge (in minutes): 45 Diagnosis - Discharge Diagnosis (1) Asthma Status: Acute Priority: Medium (2) Heroin overdose Status: Acute Priority: High Hospital Course - Lab Results Lab Results: Most Recent Lab Values WBC 9.2 10^3/ul (4.5-11.0) D 10/26/17 05:30 RBC 5.01 10^6/uL (3.5-6.1) 10/26/17 05:30 Hgb 14.0 g/dL (14.0-18.0) 10/26/17 05:30 Hct 40.8 % (42.0-52.0) L 10/26/17 05:30 MCV 81.4 fl (80.0-105.0) 10/26/17 05:30 MCH 27.9 pg (25.0-35.0) 10/26/17 05:30 MCHC 34.3 g/dl (31.0-37.0) 10/26/17 05:30 RDW 12.8 % (11.5-14.5) 10/26/17 05:30 Plt Count 226 10^3/uL (120.0-450.0) 10/26/17 05:30 MPV 9.5 fl (7.0-11.0) 10/26/17 05:30 Gran % 87.7 % (50.0-68.0) H 10/26/17 05:30 Lymph % (Auto) 10.3 % (22.0-35.0) L 10/26/17 05:30 Spalding % (Auto) 2.0 % (1.0-6.0) 10/26/17 05:30 Eos % (Auto) 0.0 % (1.5-5.0) L 10/26/17 05:30 Baso % (Auto) 0.0 % (0.0-3.0) 10/26/17 05:30 Gran # 8.08 (1.4-6.5) H 10/26/17 05:30 Lymph # (Auto) 1.0 (1.2-3.4) L 10/26/17 05:30 Spalding # (Auto) 0.2 (0.1-0.6) 10/26/17 05:30 Eos # (Auto) 0.0 (0.0-0.7) 10/26/17 05:30 Baso # (Auto) 0.00 K/mm3 (0.0-2.0) 10/26/17 05:30 Sodium 142 mmol/L (132-148) 10/26/17 05:30 Potassium 4.5 mmol/L (3.6-5.0) 10/26/17 05:30 Chloride 105 mmol/L (98-107) 10/26/17 05:30 Carbon Dioxide 25 mmol/L (21-33) 10/26/17 05:30 Anion Gap 16 (10-20) 10/26/17 05:30 BUN 12 mg/dL (7-21) 10/26/17 05:30 Creatinine 0.7 mg/dl (0.8-1.5) L 10/26/17 05:30 Est GFR ( Amer) > 60 10/26/17 05:30 Est GFR (Non-Af Amer) > 60 10/26/17 05:30 Random Glucose 127 mg/dL (70-110) H 10/26/17 05:30 Calcium 9.7 mg/dL (8.4-10.5) 10/26/17 05:30 Total Bilirubin 0.6 mg/dL (0.2-1.3) 10/26/17 05:30 AST 18 U/L (17-59) 10/26/17 05:30 ALT 18 U/L (7-56) 10/26/17 05:30 Alkaline Phosphatase 61 U/L (38-126) 10/26/17 05:30 Troponin I < 0.01 ng/mL 10/25/17 06:00 Total Protein 7.1 g/dL (5.8-8.3) 10/26/17 05:30 Albumin 4.1 g/dL (3.0-4.8) 10/26/17 05:30 Globulin 3.0 gm/dL 10/26/17 05:30 Albumin/Globulin Ratio 1.3 (1.1-1.8) 10/26/17 05:30 Urine Color Light yellow (YELLOW) 10/24/17 20:35 Urine Appearance Clear (CLEAR) 10/24/17 20:35 Urine pH 6.0 (4.7-8.0) 10/24/17 20:35 Ur Specific Brogan 1.020 (1.005-1.035) 10/24/17 20:35 Urine Protein Negative mg/dL (<30 mg/dL) 10/24/17 20:35 Urine Glucose (UA) Negative mg/dL (NEGATIVE) 10/24/17 20:35 Urine Ketones Negative mg/dL (NEGATIVE) 10/24/17 20:35 Urine Blood Trace-intact (NEGATIVE) H 10/24/17 20:35 Urine Nitrate Negative (NEGATIVE) 10/24/17 20:35 Urine Bilirubin Negative (NEGATIVE) 10/24/17 20:35 Urine Urobilinogen 0.2 E.U./dL (<1 E.U./dL) 10/24/17 20:35 Ur Leukocyte Esterase Negative Deacon/uL (NEGATIVE) 10/24/17 20:35 Urine RBC 0 - 2 /hpf (0-2) 10/24/17 20:35 Urine WBC 0 - 2 /hpf (0-6) 10/24/17 20:35 Ur Epithelial Cells None /hpf (0-5) 10/24/17 20:35 Urine Bacteria Small (NEG) 10/24/17 20:35 Urine Other Usperm 10/24/17 20:35 Urine Opiates Screen Positive (NEGATIVE) H 10/24/17 20:35 Urine Methadone Screen Negative (NEGATIVE) 10/24/17 20:35 Ur Barbiturates Screen Negative (NEGATIVE) 10/24/17 20:35 Ur Phencyclidine Scrn Negative (NEGATIVE) 10/24/17 20:35 Ur Amphetamines Screen Negative (NEGATIVE) 10/24/17 20:35 U Benzodiazepines Scrn Negative (NEGATIVE) 10/24/17 20:35 U Oth Cocaine Metabols Negative (NEGATIVE) 10/24/17 20:35 U Cannabinoids Screen Negative (NEGATIVE) 10/24/17 20:35 - Hospital Course Hospital Course: Patient is a 56 year old male with a past medical of Asthma who presents complaining of worsening shortness of breath that started about 10 a.m. on morning of admission. Patient states he was working at a [employer] site when his symptoms began. He tried his albuterol inhaler to relieve his symptoms with minimal relief. Patient also admitted to heroin use on day of admission as well as sick contacts with the flu. Patient complained of intermittent dyspnea on exertion and needing to use his albuterol inhaler on a daily basis. Radioimaging revealed no acute infiltrate or cardiopulmonary disease however possible chronic obstructive pulmonary disease. Patient was told to follow up with his primary care physician regarding the findings. Drug screen was positive for heroin, patient was beginning to withdraw and given ativan as well as methadone. Patient stated when he withdraws he normally becomes short of breath, nauseous, loses appetite and vomits. Patient was also encouraged to find ways to end his drug addiction. Social work was consulted on the case for further assistance. Patient was given information for outpatient for substance services in several different locations throughout the [facility]. Patient was in agreement with plan and once his symptoms had resolved, was discharged. Case discussed and reviewed with Dr. Jimi Maharaj PGY1 Discharge Exam - Head Exam Head Exam: ATRAUMATIC, NORMAL INSPECTION, NORMOCEPHALIC - Eye Exam Eye Exam: EOMI, Normal appearance - ENT Exam ENT Exam: Mucous Membranes Moist - Neck Exam Neck exam: Normal Inspection - Respiratory Exam Respiratory Exam: Clear to PA & Lateral, NORMAL BREATHING PATTERN. absent: Rhonchi, Wheezes - Cardiovascular Exam Cardiovascular Exam: REGULAR RHYTHM, +S1, +S2 - GI/Abdominal Exam GI & Abdominal Exam: Normal Bowel Sounds, Unremarkable - Extremities Exam Extremities exam: calf tenderness, full ROM, normal inspection - Back Exam Back exam: NORMAL INSPECTION - Neurological Exam Neurological exam: Alert, Oriented x3 - Psychiatric Exam Additional comments: Withdrawing from heroin; weakness, lethargy, loss of appetite, nausea, vomiting - Skin Skin Exam: Intact, Normal Color, Warm Discharge Plan - Discharge Medications Prescriptions: Methadone 10 mg PO TID PRN #6 tab PRN Reason: Pain, Moderate (4-7) - Follow Up Plan Condition: STABLE Disposition: HOME/ ROUTINE Instructions: Chronic Obstructive Pulmonary Disease (COPD), Including Emphysema , Alcohol Withdrawal (DC), Alcohol Abuse and Alcoholism (DC) Additional Instructions: Discharge Instructions 1. Follow up with Primary care at [place] within 1 week. 2. Complete drug abuse cessation is strongly advised. 3. smoking cessation is strongly advised. 4. 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 Referrals: [facility] at [facility] [Outside] <Laura Krause - Last Filed: 10/28/17 16:47> Provider - Provider Date of Admission: 10/24/17 22:28 Attending physician: Laura Krause MD Hospital Course - Lab Results Lab Results: Most Recent Lab Values WBC 9.2 10^3/ul (4.5-11.0) D 10/26/17 05:30 RBC 5.01 10^6/uL (3.5-6.1) 10/26/17 05:30 Hgb 14.0 g/dL (14.0-18.0) 10/26/17 05:30 Hct 40.8 % (42.0-52.0) L 10/26/17 05:30 MCV 81.4 fl (80.0-105.0) 10/26/17 05:30 MCH 27.9 pg (25.0-35.0) 10/26/17 05:30 MCHC 34.3 g/dl (31.0-37.0) 10/26/17 05:30 RDW 12.8 % (11.5-14.5) 10/26/17 05:30 Plt Count 226 10^3/uL (120.0-450.0) 10/26/17 05:30 MPV 9.5 fl (7.0-11.0) 10/26/17 05:30 Gran % 87.7 % (50.0-68.0) H 10/26/17 05:30 Lymph % (Auto) 10.3 % (22.0-35.0) L 10/26/17 05:30 Spalding % (Auto) 2.0 % (1.0-6.0) 10/26/17 05:30 Eos % (Auto) 0.0 % (1.5-5.0) L 10/26/17 05:30 Baso % (Auto) 0.0 % (0.0-3.0) 10/26/17 05:30 Gran # 8.08 (1.4-6.5) H 10/26/17 05:30 Lymph # (Auto) 1.0 (1.2-3.4) L 10/26/17 05:30 Spalding # (Auto) 0.2 (0.1-0.6) 10/26/17 05:30 Eos # (Auto) 0.0 (0.0-0.7) 10/26/17 05:30 Baso # (Auto) 0.00 K/mm3 (0.0-2.0) 10/26/17 05:30 Sodium 142 mmol/L (132-148) 10/26/17 05:30 Potassium 4.5 mmol/L (3.6-5.0) 10/26/17 05:30 Chloride 105 mmol/L (98-107) 10/26/17 05:30 Carbon Dioxide 25 mmol/L (21-33) 10/26/17 05:30 Anion Gap 16 (10-20) 10/26/17 05:30 BUN 12 mg/dL (7-21) 10/26/17 05:30 Creatinine 0.7 mg/dl (0.8-1.5) L 10/26/17 05:30 Est GFR ( Amer) > 60 10/26/17 05:30 Est GFR (Non-Af Amer) > 60 10/26/17 05:30 Random Glucose 127 mg/dL (70-110) H 10/26/17 05:30 Calcium 9.7 mg/dL (8.4-10.5) 10/26/17 05:30 Total Bilirubin 0.6 mg/dL (0.2-1.3) 10/26/17 05:30 AST 18 U/L (17-59) 10/26/17 05:30 ALT 18 U/L (7-56) 10/26/17 05:30 Alkaline Phosphatase 61 U/L (38-126) 10/26/17 05:30 Troponin I < 0.01 ng/mL 10/25/17 06:00 Total Protein 7.1 g/dL (5.8-8.3) 10/26/17 05:30 Albumin 4.1 g/dL (3.0-4.8) 10/26/17 05:30 Globulin 3.0 gm/dL 10/26/17 05:30 Albumin/Globulin Ratio 1.3 (1.1-1.8) 10/26/17 05:30 Urine Color Light yellow (YELLOW) 10/24/17 20:35 Urine Appearance Clear (CLEAR) 10/24/17 20:35 Urine pH 6.0 (4.7-8.0) 10/24/17 20:35 Ur Specific Brogan 1.020 (1.005-1.035) 10/24/17 20:35 Urine Protein Negative mg/dL (<30 mg/dL) 10/24/17 20:35 Urine Glucose (UA) Negative mg/dL (NEGATIVE) 10/24/17 20:35 Urine Ketones Negative mg/dL (NEGATIVE) 10/24/17 20:35 Urine Blood Trace-intact (NEGATIVE) H 10/24/17 20:35 Urine Nitrate Negative (NEGATIVE) 10/24/17 20:35 Urine Bilirubin Negative (NEGATIVE) 10/24/17 20:35 Urine Urobilinogen 0.2 E.U./dL (<1 E.U./dL) 10/24/17 20:35 Ur Leukocyte Esterase Negative Deacon/uL (NEGATIVE) 10/24/17 20:35 Urine RBC 0 - 2 /hpf (0-2) 10/24/17 20:35 Urine WBC 0 - 2 /hpf (0-6) 10/24/17 20:35 Ur Epithelial Cells None /hpf (0-5) 10/24/17 20:35 Urine Bacteria Small (NEG) 10/24/17 20:35 Urine Other Usperm 10/24/17 20:35 Urine Opiates Screen Positive (NEGATIVE) H 10/24/17 20:35 Urine Methadone Screen Negative (NEGATIVE) 10/24/17 20:35 Ur Barbiturates Screen Negative (NEGATIVE) 10/24/17 20:35 Ur Phencyclidine Scrn Negative (NEGATIVE) 10/24/17 20:35 Ur Amphetamines Screen Negative (NEGATIVE) 10/24/17 20:35 U Benzodiazepines Scrn Negative (NEGATIVE) 10/24/17 20:35 U Oth Cocaine Metabols Negative (NEGATIVE) 10/24/17 20:35 U Cannabinoids Screen Negative (NEGATIVE) 10/24/17 20:35 Attending/Attestation - Attestation I have personally seen and examined this patient.: Yes I have fully participated in the care of the patient.: Yes I have reviewed all pertinent clinical information, including history, physical exam and plan: Yes Notes (Text): 10/28/17 16:46 attending note; Patient seen and examined with resident. Patient is a 56-year-old male with a past medical history of asthma/COPD, active smoker, active heroin abuse is admitted with COPD exacerbation. Treated with oxygen, DuoNeb, inhaled steroids and IV Solu-Medrol. Stable respiratory status. chest x-ray is negative for pneumonia. Heroin withdrawal; started on methadone. Complete drug abuse cessation is strongly advised. Patient has nausea and vomiting. Tolerating diet. Active smoking; smoking cessation is strongly advised. started on NicODERM patch. 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 Information about rehabilitation program given. upon discharge the patient will follow-up with PMD in [place].
[2017-10-27] MEDS: Enoxaparin 30 mg Syringe SC SCH (10:42)
[2017-10-27] MEDS: MethylPREDNISolone 40 mg Vial IVP SCH (10:43)
[2017-10-27] MEDS: Fluticasone Nasal 50 mcg/Spray NS SCH (10:44)
[2017-10-27] MEDS: Ammonium Lactate 12% Lotion (225 g) EXT SCH ×2 (10:45→17:01)
[2017-10-27] MEDS: Clotrimazole 1% Cream(30 gm) TOP SCH ×2 (10:45→17:01)
[2017-10-28] MEDS: Dextrose 5%/0.9% NS 1,000 ML IV SCH (00:01)
[2017-10-28] MEDS: MethylPREDNISolone 40 mg Vial IVP SCH (00:01)
[2017-10-28] MEDS: Albuterol-Ipratrop 3 mg / 0.5 (3 ml) UD IH SCH ×2 (01:09→07:22)
[2017-10-28 03:17] VITALS: RESP 20
[2017-10-28] MEDS: Pantoprazole 40 mg EC Tab PO SCH (05:57)
[2017-10-28 07:18] VITALS: BP 119/71; TEMP 99; O2SAT 98
--- NOTE | 2017-10-28 08:14 | CON ---
DATE: 10/27/2017 PRESENTATION: The patient is a 56-year-old male seen at bedside. Patient was admitted to [facility] on 10/24/2017 for shortness of breath. 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 Also that day was his last use of heroin. He sniffed it. Psychiatric consultation was ordered today for anxiety and depression. Patient was seen at bedside and he appears acutely uncomfortable, his color is poor, he is hunched over his stomach, he has a full tray of food that he says is unable to eat and he keeps his eyes shut and murmurs his answers to my questions. Patient indicates he came to the hospital for breathing difficulties. 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 He is able to support himself and is not getting any public assistance. He does not currently have any insurance. Patient indicates that he has never been to a psychiatrist in the past, never been psychiatrically hospitalized. He has never been on the psychiatric medication nor does he have any history of suicide attempts or suicidal ideation. Medically, patient indicates that he has asthma and he coughed quite a bit during the time I was with him. Patient indicates he grew up in [place], [place]. There is no one in his family who has any family history of depression. He does not use alcohol or any other drugs; however, he has been using heroin 4-5 bags a day for the last 10 years. He has never tried to stop on his own. He has never been in any form of rehab or treatment, but he feels like he has had enough at this point in time and really would like to be referred to a drug rehabilitation. Patient is #3 of 3 siblings. His parents are . He indicates his childhood was good, it was happy, his parents stayed together. He did okay in school. He was in regular education program. He had friends. He played sports in high school, played basketball all 4 years and graduated high school on time from a regular education program. His first job is construction, he has been doing this since. He has no significant other. He has never been and has no children. He has no support system, indicates he really does not have any friends and is not involved with any clubs, organizations, groups or congregational. He has no access to guns. Patient indicates that he feels he is going through withdrawal at this time. CURRENT MEDICATIONS: Include albuterol, Zithromax, Lotrimin, Pepcid, Flonase, methadone 10 mg 1 p.o. t.i.d. for severe pain, Solu-Medrol, NicoDerm CQ, Zofran and Protonix. He has received the Zofran and Protonix; however, he has not received the methadone today. VITAL SIGNS: Today include temperature of 98.5, blood pressure of 114/78, pulse of 69, respiratory rate of 22 and O2 sat of 99. MENTAL STATUS EXAMINATION: Patient though he lays with his eyes shut, talking to me, he is alert, he is oriented x3. His eye contact is none. His speech rate and volume are within normal limits. Mood is blunted. Affect is constricted. Thoughts are goal directed, concrete and simplistic. There is no conversation. He answers the questions asked to him. Patient denies being suicidal or homicidal. Denies the presence of hallucinations, delusions or paranoia. His concentration and his focus he indicates are poor. 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 His appetite is very poor. He feels like he cannot eat, his stomach is hurting and he indicates that his sleep however is good. DIAGNOSTIC IMPRESSION: Opioid use disorder, severe, chronic, ongoing. PLAN: Patient denies being suicidal or homicidal and appears in no imminent danger of hurting himself or others at this time. Patient when asked is willing to go into some sort of drug rehabilitation program. He says he is tired of the drugs and he would like to make an attempt to get sober at this point in time. He has a 10-year history of use of 4-5 bags of heroin daily and has not been able to stop on his own and wants to stop it, according to himself. I spoke with the manager social responsibility in reference to getting some referral to him. He is psychiatrically cleared at this point in time for whenever his medical discharge may occur. I am signing off on this patient, this case has been discussed with Dr. Muhammad. Thank you for the consult. Roula Evans APN Lilliam Muhammad MD [facility] # [id number]
[2017-10-28 08:35] VITALS: PULSE 60
== END 2017-10-28 10:40 | disposition home or self-care (01) | DRG 88 ==
LOC: ED 17:06 → ERH 22:28 → 2RNO 10-25 00:10
PROVIDERS: ADMIT Internal Medicine; ATTEND Internal Medicine
DX: J44.1 Chronic obstructive pulmonary disease with (acute) exacerbation (principal); B35.3 Tinea pedis; F11.23 Opioid dependence with withdrawal; F17.200 Nicotine dependence, unspecified, uncomplicated; L30.9 Dermatitis, unspecified